=== PATIENT | male | born 1950 | race Caucasian/White ===

== ENCOUNTER 2024-09-06 10:54 | Outpatient (CLI) | payer MEDICARE, SELFPAY ==
--- OUTSIDE RECORDS SUMMARY | 2024-08-15 11:00 | XMS_ITS | Encounter Summary ---
Author Organization [facility] Address [address] [place] [id number] Care Team Providers Care Card Doffer Name Role Phone Jorje Rodas PA-C Primary Care Provider [phone] Phys[facility], [place] Family Unavailable [phone] Reason for Visit * Reason Comments Recheck Medication Not fasting, came in for med check. Encounter Details Date Type Department Care Team ([facility] st Contact Info) Description 08/15/2024 11:00 AM CDT Office Visit [facility] [address] [phone] Jorje Rodas PA-C [address] [place], [place] [id number] ACP (advance care planning) (Primary Dx); Primary hypertension; Benign prostatic hyperplasia with nocturia Social History Tobacco Use Types Packs/Day Years Used Date Smoking Tobacco: Former Cigarettes 1 35 1 965 - 2000 Smokeless Tobacco: Never Tobacco Cessation:Counseling Given: Not Answered Alcohol Use Standard Drinks/Week Comments Yes 1 (1 standard drink = 0.6 oz pur e alcohol) PHQ-2 Answer Date Recorded PHQ-2 Score 0 08/15/2024 Sex and Gender Information Value Date Recorded Sex Assigned at Not on file Legal Sex Male 3:35 AM [employer] Gender Identity Not on file Sexual Orientation Not on file documented as of this encounter Last Filed Vital Signs Vital Sign Reading Time Taken Comments Blood Pressure 115/82 08/15/2024 11:00 AM CDT Pulse 56 08/15/2024 11:00 AM CDT Temperature 36.8 C (98.3 F) 08/15/2024 11:00 AM CDT Respiratory Rate - - Oxygen Saturation 95% 08/15/2024 11:00 AM CDT Inhaled Oxygen Concentration - - Weight 93.7 kg (206 lb 9.6 oz) 08/15/2024 11:00 AM CDT Height - - Body Mass Index 33.6 01/04/2024 9:54 AM CDT documented in this encounter Progress Notes * Jorje Rodas PA-C - 08/15/2024 11:00 AM CDT Assessment & Plan Primary hypertension-stable, good control continues, refilled without change - lisinopril-hydrochlorothiazide (ZESTORETIC) 10-12.5 MG tablet Dispense: 90 tablet; Refill: 1 Benign prostatic hyperplasia with nocturia-not much improvement on higher Flomax dose. Pt declines urology referral now, will call for this. Refilled without change - tamsulosin (FLOMAX) 0.4 MG capsule Dispense: 180 capsule; Refill: 1 ACP (advance care planning) Follow up 6 months OV Subjective Sandro is a 74 year old, presenting for the following health issues: Recheck Medication (Not fasting, came in for med check.) HPI BPH: Flomax .8mg daily, no significant change with increasing this dose 7 months ago. Still having bladder urgency, hard to empty bladder, urinary dribbling. Will call if he decides to proceed with urology referral. Hypertension Follow-up Do you check your blood pressure regularly outside of the clinic? No Are you following a low salt diet? Yes Are your blood pressures ever more than 140 on the top number (systolic) OR more than 90 on the bottom number (diastolic), for example 140/90? No BP meds daily, no concerns. BP Readings from Last 2 Encounters: 08/15/24 115/82 01/04/24 124/68 Review of Systems Constitutional, neuro, ENT, endocrine, pulmonary, cardiac, gastrointestinal, genitourinary, musculoskeletal, integument and psychiatric systems are negative, except as otherwise noted. Objective BP 115/82 (BP Location: Right arm, Patient Position: Sitting, Cuff Size: Adult Large) Pulse 56 Temp 98.3 ??F (36.8 ??C) Wt 93.7 kg (206 lb 9.6 oz) SpO2 95% BMI 33.60 kg/m?? Body mass index is 33.6 kg/m??. Physical Exam GENERAL: alert and no distress NECK: no adenopathy, no asymmetry, masses, or scars RESP: lungs clear to auscultation - no rales, rhonchi or wheezes CV: regular rate and rhythm, normal S1 S2, no S3 or S4, no murmur, click or rub, no peripheral edema ABDOMEN: soft, nontender, no hepatosplenomegaly, no masses and bowel sounds normal MS: no gross musculoskeletal defects noted, no edema NEURO: Normal strength and tone, mentation intact and speech normal PSYCH: mentation appears normal, affect normal/bright Signed Electronically by: Jorje Rodas PA-C documented in this encounter Nursing Notes * Violeta Cosme CMA - 08/15/2024 11:00 AM CDT Chief Complaint Patient presents with Recheck Medication Not fasting, came in for med check. Pre-visit Screening: Immunizations: not up to date - Tdap, COVID Colonoscopy: is up to date Mammogram: na Asthma Action Test/Plan: na PHQ9: Phq2 given today GAD7: na Questioned patient about current smoking habits Pt. quit smoking some time ago. Ok to leave detailed message on voice mail for today's visit only yes, phone # [phone] (home) documented in this encounter Plan of Treatment Not on file documented as of this encounter Visit Diagnoses Diagnosis ACP (advance care planning)- Primary Other specified counseling Primary hypertension Unspecified essential hypertension Benign prostatic hyperplasia with nocturia documented in this encounter Care Teams Card Doffer Relationship Specialty Start Date End Date Jorje Rodas PA-C [address] [place] [phone] PCP - General Family Medicine 01/03/24 Physicians, [address] [place] [address] Assigned PCP 02/04/24 documented as of this encounter
--- OUTSIDE RECORDS SUMMARY | 2024-09-06 11:10 | XMS_ITS | Clinical Summary ---
Author Organization [facility] Address [address] [place] [address] Care Team Providers Care Dispensing Audiologist Name Role Phone Found, No Pcp MD Primary Care Provider Unavailab le Source Comments You are receiving this document as you are listed as the primary care provider,follow-up provider, or the patient has been referred to you for consultation.This is in compliance with the Medicare andMedicaid EHR Incentive Program,which states Providers who transition their patient to another setting of careor provider of care or refers their patient to another provider of care shouldprovide summary care record for each transition of care or referral. [facility] Allergies No known active allergies Medications atorvastatin (LIPITOR) 10 MG tabletIndication s:Dyslipidemia (HRC) Take 1 Tablet (10 mg) by mouth daily. 90 Tablet 3 3 Active lisinopril-hydro chlorothiazide (PRINZIDE) 10-12.5 MG tabletIndication s:Hypertension Take 1 Tablet by mouth daily. Indications: High Blood Pressure Disorder 90 Tablet 3 3 Active tamsulosin (FLOMAX) 0.4 MG CAPS capsuleIndicatio ns:Benign Prostatic Hypertrophy Take 1 Capsule (0.4 mg) by mouth daily. Indications: Benign Enlargement of Prostate 90 Capsule 3 3 Active Active Problems Problem Noted Date Diagnosed Date IFG (impaired fasting glucose) 06/06/2020 Osteoarthritis of carpometac arpal (CMC) joint of right thumb 01/04/2019 Osteoarthritis of left ankle 01/04/2019 Dyslipidemia 04/20/2017 Benign prostatic hyperplasia 03/18/2016 Essential hypertension 03/18/2016 Obesity 10/25/2013 Family history of colonic polyps 10/25/2013 Overview (06/06/2020): Mother with mult. large polyps. Last colonoscopy 04/15/2020, next due 04/2025. Resolved Problems Problem Noted Date Diagnosed Date Resolved Date Old complex tear of medial m eniscus of left knee 03/05/2019 05/15/2019 Immunizations Immunization Administration Dates Next Due Flu Vac (3+ yrs) 01/01/2014 Influenza (Flucelvax), Preserv Free QIV 04/05/19 Influenza IIV3 (Trivalent) F amada Highdose, 65+ Yrs (79319) 11/10/2019,01/04/2019,12/16/2017 Influenza IIV4 (Quadrivalent) 0.5mL ([id number]) 07/2016,11/15/2014 Influenza IIV4 (Quadrivalent ) Fluad, 65+ Yrs 12/13/2022,12/09/2021 Influenza ccIIV3 6 months+ (Flucelvax) 4 Influenza, Unspecified Formulation 04/14/2017 PCV13 (Prevnar) 04/14/2017,04/05/2017 PPSV23 (Pneumovax) 04/21/2018 Pfizer Bivalent 12+ 12/09/2021 Pfizer COVID-19 12+ 12/13/2022 Pfizer Monovalent 12+ 06/29/2021 Pfizer Monovalent 12+ Purple Top 12/11/2020,04/15,04/11/2020 RSV Arexvy 12/13/2022 TDAP (BOOSTRIX) 10/25/2013 Td 11/13/2007,10/05/2003 Zoster (Zostavax) 11/15/2014 Zoster RZV (Shingrix) 01/29/2020,10/23/2019 Family History Medical History Relation Name Comments Alzheimer's Father Arrhythmia Father Cancer, Bladder Father Cataract Father Pacemaker Father Colon Polyps Mother Coronary Artery Disease Mother Myocardial Infarction Mother Alzheimer's Paternal Grandfather Amblyopia/Strabismus Negative Family History Diabetes Negative Family History Glaucoma Negative Family History Macular Degeneration Negative Family History Retinal Detachment Negative Family History Relation Name Status Comments Father (Age 84) Mother (Age 77) Brother Alive Paternal Grandfather Sister 1 Alive Sister 2 Alive Social History Tobacco Use Types Packs/Day Years Used Date Smoking Tobacco: Former Cigarettes 1 35.2 0 03/14/1964 - 05/25/1999 Smokeless Tobacco: Never Tobacco Cessation:Counseling Given: Not Answered Alcohol Use Standard Drinks/Week Comments Not Currently 7 (1 standard drink = 0.6 oz pur e alcohol) Social drinker PHQ-2 Answer Date Recorded PHQ-2 Score 0 12/15/2022 Sex and Gender Information Value Date Recorded Sex Assigned at Not on file Legal Sex Male 3:38 AM CDT Gender Identity Not on file Sexual Orientation Not on file 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) Not on file Not on file Not on f ile Last Filed Vital Signs Vital Sign Reading Time Taken Comments Blood Pressure 137/78 12/15/2022 11:20 AM CDT Pulse 52 12/15/2022 11:20 AM CDT Temperature 36.6 C (97.8 F) 03/13/2019 3:52 PM 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 Respiratory Rate 18 05/25/2021 7:38 AM CDT Oxygen Saturation 97% 05/25/2021 7:38 AM CDT Inhaled Oxygen Concentration - - Weight 92.5 kg (204 lb) 12/15/2022 11:11 AM CDT Height 170.2 cm (5' 7) 12/15/2022 11:11 AM CDT Body Mass Index 31.95 12/15/2022 11:11 AM CDT Plan of Treatment Health Maintenance Due Date Last Done Comments DTaP/Tdap/Td Vaccine (2 - Tdap) 10/26/2023 10/25/2013, 10/25/2013 (Completed), 11/13/2007, Additional history exists COVID-19 Vaccine ( season) 2023 12/13/2022, 12/09/2021, 06/29/2021, Additional history exists Prediabetes: HGBA1C 12/16/2023 12/15/2022, 06/09/2021, 04/19/2017, Additional history exists Medicare Annual Wellness Visit 03/14/2024 12/15/2022, 06/09/2021, 06/06/2020 Influenza Vaccine (Season Ended) 2024 12/13/2022, 12/09/2021, 11/10/2019, Additional history exists Colonoscopy 04/15/2025 04/15/2020, 04/10/2015 Cholesterol 12/16/2027 12/15/2022, 05/13, 09/28/2019, Additional history exists Hep C Screening (Preventive Services) Completed 10/11/2016 Pneumococcal Vaccine 50+ Yrs Completed 04/21/2018, 04/14/2017, 04/05/2017 Abdominal Aortic Aneurysm (AAA) Screening Discontinued 10/25/2019 Zoster/Shingles Vaccine Completed 01/29/20 20, 10/23/2019, 11/15/2014 RSV Vaccine Completed 12/13/2022 PSA Screening Discussion Discontinued 023, 06/09/2021, 09/28/2019, Additional history exists HepA Vaccine Aged Out No longer eligi ble based on patient's age to complete this topic HepB Vaccine Aged Out No longer eligi ble based on patient's age to complete this topic Hib Vaccine Aged Out No longer eligi ble based on patient's age to complete this topic MCV4 Vaccine Aged Out No longer eligi ble based on patient's age to complete this topic Meningococcal B Vaccine Aged Out No l onger eligible based on patient's age to complete this topic Medical Devices Implanted Type Area Communications Director Device Identifier Shelf Expiration Date Model / Serial / Lot [employer] - [id number] Implanted:Qty: 1 on 08/30/2016 by Celestino Burt MD at [facility] Right: SHOULDER [employer] 07/11/2018 [id number] / 0 / [id number] Procedures Procedure Name Priority Date/Time Associated Diagnosis Comments PROSTATIC SPECIFIC ANTIGEN(SCREEN) Routine 12/15/2022 12:00 PM CDT Screening for prostate cancer HGB A1C Routine 12/15/2022 12:00 PM CDT IFG (impaired fasting glucose) LIPID PANEL & DIRECT LDL (IF NEEDED) Routine 12/15/2022 12:00 PM CDT Dyslipidemia (HRC) ENDOSCOPY, COLON, SCREENING/DIAGNOSTI C Routine 04/15/2020 9:58 AM 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 Personal history of colonic polyps US ABD AAA SCREENING Routine 10/25/2019 8:24 AM CDT Screening for AAA (abdominal aortic aneurysm) HEPATITIS C ANTIBODY, WITH REFLEX (ANTI-HCV) Routine 10/11/2016 4:39 PM CDT Screening examination for infectious disease from Last 3 Months or Most Recently Relevant to Health Maintenance Results * (ABNORMAL) Lipid Panel and Direct LDL(If Needed) (12/15/2022 12:00 PM CDT) Cholesterol 152 0 - 199 mg/dL 12/15/2022 3:56 PM CDT [facility] Triglyceride 106 <=149 mg/dL 12/15/2022 3:56 PM CDT [facility] HDL Cholesterol 39(L) >=40 mg/dL 3:56 PM CDT [facility] LDL, Calculated 92 <130 mg/dL 3:56 PM T [facility] Non HDL Chol, Calculated 113 <=159 mg/dL 12/15/2022 3:56 PM T [facility] Cholesterol/HDL Ratio 3.9 12/15/2022 3:56 PM T [facility] Hours Fasting 12.0 8 - 12 Hours 12/15/2022 3:56 PM T [facility] Blood Venipuncture / Unknown 12/15/2022 12:00 PM CDT 12/15/2022 12:00 PM CDT us Javed Macias MD LAB_1 Final Result [facility] [address] [place] [address], [facility] [phone] * Prostatic Specific Antigen (Screen) (12/15/2022 12:00 PM CDT) Prostatic Specific Antigen 3.2 0.0 - 4.0 ng/mL 12/15/2022 5:13 PM CDT [facility] Blood Venipuncture / Unknown 12/15/2022 12:00 PM CDT 12/15/2022 12:00 PM CDT [facility] - 12/15/2022 5:13 PM CDT The Heyo PSA Chemiluminescent immunoassay is used. Results obtained with different test methods or kits cannot be used interchangeably. Javed Macias MD LAB_1 Final Result Performing Organization Address City/[facility]/ZIP Co de Phone Number [facility] [address] [place], [place] [id number] [place] [address] * Hgb A1C (12/15/2022 12:00 PM CDT) Pathologist [facility] Hemoglobin A1C (Rapid) 4.9 <=5.6 % 12/15/2022 12:49 PM CDT [facility] Estimated Average Glucose (Calc) 94 < 117 mg/dL 12/15/2022 12:49 PM CDT [facility] Comment:Estimated average gl ucose (eAG) converts A1c into glucose units (mg/dL) and estimates average glucose over the past approximately 3 months. The eAG reference interval (<117 mg/dL) corresponds to an A1c of <5.7%. Blood Venipuncture / Unknown 12/15/2022 12:00 PM CDT 12/15/2022 12:00 PM CDT [facility] - 12/15/2022 12:49 PM CDT The test method used for this Hemoglobin A1c result can experience interference from elevated hemoglobin and other hemoglobin variants. In patients with results that do not correlate clinically, contact the lab for further direction. Javed Macias MD LAB_1 Final Result [facility] [address] [place] [address] [phone] * Endoscopy, colon, diagnostic (04/15/2020 9:58 AM 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) Anatomical Region Laterality Modality Other 04/15/2020 9:58 AM 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 Narrative 04/15/2020 9:58 AM 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 Patient Name: Viky Ricks Procedure Date: 04/15/2020 9:58 AM Date of : 1950 Admit Type: Outpatient Age: 70 Gender: Male Note Status: Finalized Attending MD: Praneeth Noe MD Procedure: Colonoscopy Indications: Surveillance: Personal history of adenomatous polyps on last colonoscopy 5 years ago, Last colonoscopy: March 2015 Providers: Praneeth Noe MD, Nesha Hankins RN Referring MD: Praneeth Noe MD Medicines: Midazolam 2 mg IV, Fentanyl 100 micrograms IV Complications: No immediate complications. Estimated blood loss: None. Procedure: Pre-Anesthesia Assessment: - The following statement was reviewed with the patient during pre-procedure scheduling, and was again reviewed with the patient by the endoscopist immediately prior to the procedure during the consent process, with an emphasis on the first sentence: With any procedure there is a small but inherent risk of acquiring infection including, but not limited to, the novel coronavirus (COVID-19). Please be aware that there is a potential for your procedure or surgery to be postponed, or possibly canceled, if you should test positive for COVID-19. There is also a potential for postponement of your procedure if there is a significant reduction in resources required to safely perform your procedure. After I obtained informed consent, the scope was passed under direct vision. Throughout the procedure, the patient's blood pressure, pulse, and oxygen saturations were monitored continuously. The [id number] was introduced through the anus and advanced to the cecum, identified by the appendiceal orifice, ileocecal valve and palpation. The colonoscopy was performed without difficulty. The patient tolerated the procedure well. The quality of the bowel preparation was good. Findings: Multiple small-mouthed diverticula were found in the sigmoid colon and descending colon. The retroflexed view of the distal rectum and anal verge was normal and showed no anal or rectal abnormalities. The exam was otherwise without abnormality. Moderate Sedation: Moderate (conscious) sedation was administered by the endoscopy nurse and supervised by the endoscopist. The patient's oxygen saturation, heart rate, blood pressure and response to care were monitored. Total physician intraservice time was 17 minutes. Impression: - Diverticulosis in the sigmoid colon and in the descending colon. - The distal rectum and anal verge are normal on retroflexion view. - The examination was otherwise normal. - No specimens collected. Recommendation: - Discharge patient to home. - Repeat colonoscopy in 5 years for surveillance. Procedure Code(s): --- Professional --- G0105, Colorectal cancer screening; colonoscopy on individual at high risk G0500, Moderate sedation services provided by the same physician or other qualified health care management assistant performing a gastrointestinal endoscopic service that sedation supports, requiring the presence of an independent trained observer to assist in the monitoring of the patient's level of consciousness and physiological status; initial 15 minutes of intra-service time; patient age 5 years or older (additional time may be reported with [address]152, as appropriate) Diagnosis Code(s): --- Professional --- K57.30, Diverticulosis of large intestine without perforation or abscess without bleeding Z86.010, Personal history of colonic polyps CPT copyright 2019 [employer]. All rights reserved. The codes documented in this report are preliminary and upon telephone surveyor review may be revised to meet current compliance requirements. Praneeth Noe MD 04/15/2020 10:48:22 AM This document has been electronically signed. Number of Addenda: 0 Note Initiated On: 04/15/2020 9:58 AM Endoscopy Report Procedure Note Lucien Reis MD - 04/15/2020 Patient Name: Viky Ricks Procedure Date: 04/15/2020 9:58 AM Date of : 1950 Admit Type: Outpatient Age: 70 Gender: Male Note Status: Finalized Attending MD: Praneeth Noe MD Procedure: Colonoscopy Indications: Surveillance: Personal history of adenomatous polyps on last colonoscopy 5 years ago, Last colonoscopy: March 2015 Providers: Praneeth Noe MD, Nesha Hankins RN Referring MD: Praneeth Noe MD Medicines: Midazolam 2 mg IV, Fentanyl 100 micrograms IV Complications: No immediate complications. Estimated blood loss: None. Procedure: Pre-Anesthesia Assessment: - The following statement was reviewed with the patient during pre-procedure scheduling, and was again reviewed with the patient by the endoscopist immediately prior to the procedure during the consent process, with an emphasis on the first sentence: With any procedure there is a small but inherent risk of acquiring infection including, but not limited to, the novel coronavirus (COVID-19). Please be aware that there is a potential for your procedure or surgery to be postponed, or possibly canceled, if you should test positive for COVID-19. There is also a potential for postponement of your procedure if there is a significant reduction in resources required to safely perform your procedure. After I obtained informed consent, the scope was passed under direct vision. Throughout the procedure, the patient's blood pressure, pulse, and oxygen saturations were monitored continuously. The [id number] was introduced through the anus and advanced to the cecum, identified by the appendiceal orifice, ileocecal valve and palpation. The colonoscopy was performed without difficulty. The patient tolerated the procedure well. The quality of the bowel preparation was good. Findings: Multiple small-mouthed diverticula were found in the sigmoid colon and descending colon. The retroflexed view of the distal rectum and anal verge was normal and showed no anal or rectal abnormalities. The exam was otherwise without abnormality. Moderate Sedation: Moderate (conscious) sedation was administered by the endoscopy nurse and supervised by the endoscopist. The patient's oxygen saturation, heart rate, blood pressure and response to care were monitored. Total physician intraservice time was 17 minutes. Impression: - Diverticulosis in the sigmoid colon and in the descending colon. - The distal rectum and anal verge are normal on retroflexion view. - The examination was otherwise normal. - No specimens collected. Recommendation: - Discharge patient to home. - Repeat colonoscopy in 5 years for surveillance. Procedure Code(s): --- Professional --- G0105, Colorectal cancer screening; colonoscopy on individual at high risk G0500, Moderate sedation services provided by the same physician or other qualified health care management assistant performing a gastrointestinal endoscopic service that sedation supports, requiring the presence of an independent trained observer to assist in the monitoring of the patient's level of consciousness and physiological status; initial 15 minutes of intra-service time; patient age 5 years or older (additional time may be reported with 11754, as appropriate) Diagnosis Code(s): --- Professional --- K57.30, Diverticulosis of large intestine without perforation or abscess without bleeding Z86.010, Personal history of colonic polyps CPT copyright 2019 [employer]. All rights reserved. The codes documented in this report are preliminary and upon telephone surveyor review may be revised to meet current compliance requirements. Praneeth Noe MD 04/15/2020 10:48:22 AM This document has been electronically signed. Number of Addenda: 0 Note Initiated On: 04/15/2020 9:58 AM Endoscopy Report us Praneeth Noe MD ET GI PROCEDURE ORDERABLES Fin al Result * US Abd AAA Screening (10/25/2019 8:24 AM CDT) Anatomical Region Laterality Modality Abdomen Ultrasound 10/25/2019 8:09 AM CDT Impressions 10/25/2019 8:35 AM CDT HISTORY: Evaluate for AAA. COMPARISON: None. FINDINGS: Proximal abdominal aorta measures (AP x Width): 2.8 x 2.8 cm Mid abdominal aorta measures (AP x Width): 2.2 x 2.2 cm Distal abdominal aorta measures (AP x Width): 2.1 x 2.0 cm Right common iliac artery measures 1.2 cm in maximum caliber. Left common iliac artery measures 1.1 cm in maximum caliber. IMPRESSION: No evidence of abdominal aortic aneurysm. PN Consensus recommendation for asymptomatic abdominal aortic aneurysm follow- up: 3.0-3.4 cm, recommend follow-up ultrasound in 2 years 3.5-4.4 cm, recommend follow-up ultrasound in 1 year 4.5-4.9 cm, recommend follow-up ultrasound in 6 months 5.0 cm or greater OR growth exceeding 5 mm in 6 months or 10 mm in 1 year, recommend consultation with vascular surgery Narrative Procedure Note Raoul Escobar MD - 10/25/2019 IMPRESSION HISTORY: Evaluate for AAA. COMPARISON: None. FINDINGS: Proximal abdominal aorta measures (AP x Width): 2.8 x 2.8 cm Mid abdominal aorta measures (AP x Width): 2.2 x 2.2 cm Distal abdominal aorta measures (AP x Width): 2.1 x 2.0 cm Right common iliac artery measures 1.2 cm in maximum caliber. Left common iliac artery measures 1.1 cm in maximum caliber. IMPRESSION: No evidence of abdominal aortic aneurysm. PN Consensus recommendation for asymptomatic abdominal aortic aneurysmfollow-up: 3.0-3.4 cm, recommend follow-up ultrasound in 2 years 3.5-4.4 cm, recommend follow-up ultrasound in 1 year 4.5-4.9 cm, recommend follow-up ultrasound in 6 months 5.0 cm or greater OR growth exceeding 5 mm in 6 months or 10 mm in 1 year,recommend consultation with vascular surgery us Javed Macias MD RAD US Final Result * Hepatitis C Virus Connie with Reflex (10/11/2016 4:39 PM CDT) Hepatitis C Antibody Nonreactive Nonreactive PN SOFT 10/11/2016 4:39 PM CDT 10/11/2016 6:36 PM CDT Narrative PN SOFT - 10/11/2016 7:49 PM CDT Performed at [address] [address] CLIA number [id number] us Nellie Duvall MD LAB_1 Final Result PN SOFT [address] [place] [phone] from Last 3 Months or Most Recently Relevant to Health Maintenance Insurance [employer] Care Teams Dispensing Audiologist Relationship Specialty Start Date End Date Found, No Pcp, [address] [facility] [address] PCP - General 02/03/24
--- OUTSIDE RECORDS SUMMARY | 2024-09-06 11:10 | XMS_ITS | Encounter Summary ---
Author Organization [facility] Address [address] [place] [address] Care Team Providers Care Patient Care Technician Name Role Phone Jorje Rodas PA-C Primary Care Provider [phone] Physicians, [facility] [phone] Encounter Details Date Type Department Care Team (Late st Contact Info) Description 08/09/2024 MyC Medical Advice [facility] Physicians [address] [place] [phone] Daniella Strong CMA Social History Tobacco Use Types Packs/Day Years Used Date Smoking Tobacco: Former Cigarettes 1 35 1 965 - 2000 Smokeless Tobacco: Never Alcohol Use Standard Drinks/Week Comments Yes 1 (1 standard drink = 0.6 oz pur e alcohol) PHQ-2 Answer Date Recorded PHQ-2 Score 0 01/04/2024 Sex and Gender Information Value Date Recorded Sex Assigned at Not on file 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
--- OUTSIDE RECORDS SUMMARY | 2024-09-06 11:10 | XMS_ITS | Clinical Summary ---
Author Organization [facility] Address [facility] [place] [address] Care Team Providers Care Preservative Filler Machine Operator Name Role Phone Services, [facility] Primary Care Provide r Allergies No known active allergies Medications atorvastatin (LIPITOR) 10 mg tablet Take 10 mg by mouth once daily. Active lisinopril-hyd rochlorothiazi de (10-12.5 mg) tablet (PRINZIDE; ZESTORETIC) Take 1 tablet by mouth once daily. Active tamsulosin (FLOMAX) 0.4 mg capsule Take 0.4 mg by mouth once daily after a meal. Active HYDROcodone-ac etaminophen, 5-325 mg, (NORCO) per tabletIndicati ons:Old complex tear of medial meniscus of left knee Take 1-2 tablets by mouth every 4 hours if needed for Pain Max acetaminophen dose: 4000mg in 24 hrs. 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 03/26/2019 Chronic prostatitis 04/12/2008 Prostatism Family history of colon cancer Overview (04/12/2008): mother Immunizations Immunization Administration Dates Next Due Td (Age >=7 Years) 11/13/2007,10/05/2003 Family History Medical History Relation Name Comments Good Health Brother 2 Chuy Alzheimer's disease Father Arrhythmia Father Cancer Father chest , bladder Cataracts Father Heart Disease Father LA/CABG late 6 0s to 70 Other Father pacemaker Colon polyps Mother Coronary artery disease Mother Heart Disease Mother LA (silent) Alzheimer's disease Paternal Grandfather Good Health Sister 3 Lola Good Health Sister 4 Aracelis Relation Name Status Comments Brother 1 Alive Brother 2 Chuy Daughter 1 Alive pre diabetic Daughter 2 Alive Daughter 3 Alive Father Alive cancer Mother Alive colon cancer Paternal Grandfather Sister 1 Alive Sister 2 Alive Sister 3 Lola Sister 4 Aracelis Social History Tobacco Use Types Packs/Day Years Used Date Smoking Tobacco: Former Cigarettes 1 35 1 965 - 1999 Smokeless Tobacco: Never Comments:Quit 1999 Alcohol Use Standard Drinks/Week Comments Yes 5 (1 standard drink = 0.6 oz pur e alcohol) Sex and Gender Information Value Date Recorded Sex Assigned at Not on file Legal Sex Male 6:49 AM SEWER SYSTEM SUPERVISOR Gender Identity Not on file Sexual Orientation Not on file Obstetrics History Last Filed Vital Signs Vital Sign Reading Time Taken Comments Blood Pressure 118/56 03/27/2019 9:40 AM SEWER SYSTEM SUPERVISOR Pulse 58 03/27/2019 9:40 AM SEWER SYSTEM SUPERVISOR Temperature 36.3 C (97.3 F) 03/27/2019 8:55 AM SEWER SYSTEM SUPERVISOR Respiratory Rate 16 03/27/2019 9:40 AM SEWER SYSTEM SUPERVISOR Oxygen Saturation 96% 03/27/2019 9:40 AM SEWER SYSTEM SUPERVISOR Inhaled Oxygen Concentration - - Weight 89.5 kg (197 lb 5 oz) 03/27/2019 6:30 AM SEWER SYSTEM SUPERVISOR Height 167.5 cm (5' 5.95) 03/27/2019 6:30 AM CS T Body Mass Index 31.9 03/27/2019 6:30 AM SEWER SYSTEM SUPERVISOR Plan of Treatment Health Maintenance Due Date Last Done Comments Tdap 1963 Depression screening for age 12+ 1964 BMI (ht and wt on same day) for age 18+ 1970 Hepatitis C screening for ag e 18-79 1970 Lipids for age 45-75 1997 Pneumococcal series for age 50+ (1 of 1 - PCV) 2002 Zoster (shingles) series for age 50+ (1 of 2) 2002 Tetanus booster 11/12/2017 11/13/2007, 10/05/2003 COVID-19 vaccine series ( - 2023-25 season) 2023 Influenza Vaccine (Season Ended) 2024 RSV vaccine for adults or (1 - 1-dose 75+ series) 2027 Colonoscopy through age 75 01/30/202901/30, 05/06/2008, 05/06/2008 Hepatitis B series for 19+ Aged Out N o longer eligible based on patient's age to complete this topic Procedures Procedure Name Priority Date/Time Associated Diagnosis Comments SCAN-COLONOSCOPY 01/31/2024 10:3 0 AM SEWER SYSTEM SUPERVISOR from Last 3 Months or Most Recently Relevant to Health Maintenance Results * SCAN-COLONOSCOPY (01/31/2024 10:30 AM SEWER SYSTEM SUPERVISOR) Narrative Procedure Note Marcos Julian MD - 01/31/2024 9:33 AM CST [facility] [place] [id number] [facility], [address], [place] [id number] Patient Name: Viky Ricks Jr Gender: Male Exam Date: 01/31/2024 Visit Number: [id number] Age: 73 Years Date of : 1950 Attending MD: Marcos Julian MD Medical Record#: [id number] Procedure: Colonoscopy Indications: Colorectal cancer screening Referring MD: Referral Self Primary MD: Jorje ROSALES Medications: Admitting Medications: 0.9% Normal Saline at TK Intra Procedure Medications: Patient received monitored anesthesia care. Complications: No immediate complications Procedure: An examination of the heart and lungs was performed and found to be withinacceptable limits. . The patient was therefore deemed a reasonablecandidate for endoscopy and sedation. The risks and benefits of the procedure were explained to the patient.After obtaining informed consent, the patient received monitoredanesthesia care and I passed the scope without difficulty via the rectum to the ileum. The appendiceal orificeand ic valve were identified. The scope was retroflexed during theexamination The quality of the prep was good (Miralax/Gatorade/2 tabletsBisacodyl/Magnesium Citrate). This was a complete examination throughout the entire colon. Findings: Normal finding. Location - ileum. Polyp location: ascending colon. Quantity: 1. Size: 1 mm. Polyp shape:sessile. Maneuver: polypectomy was performed with a cold snare. Removal: complete. Retrieval: complete. Bleeding: none. Polyp location: descending colon. Quantity: 1. Size: 4 mm. Polyp shape:sessile. Maneuver: polypectomy was performed with a cold snare. Removal: complete. Retrieval: complete. Bleeding: none. Polyp location: sigmoid. Quantity: 2. Size: 5 mm, 10 mm. Polyp shape:sessile. Maneuver: polypectomy was performed with a cold snare. Removal: complete. Retrieval: complete. Bleeding: none. Diverticulosis. Location: - sigmoid. Size: medium. Quantity:several. No inflammation present. Hemorrhoids. Internal hemorrhoids without bleeding. Remainder of the exam is normal. Impression: Colorectal polyps Diverticulosis of colon without diverticulitis Hemorrhoids, internal Preliminary Plan: The patient and their physician will receive a copy of the pathologyreport as well as pathology-based recommendations for future screening orsurveillance. Procedure: Upper GI Endoscopy Indications: Dysphagia Provider: Marcos Julian MD Referring MD: Referral Self Primary MD: Jorje ROSALES Medications: Admitting Medication: 0.9% Normal Saline at TKO Intra Procedure Medications: Patient received monitored anesthesia care. Complications: No immediate complications Procedure: An examination of the heart and lungs was performed within acceptablelimits. . The patient was therefore deemed a reasonable candidate forsedation. The risks and benefits were explained to the patient, who appeared tounderstand. After obtaining informed consent, the scope was passed underdirect vision. Throughout the procedure the patient's blood pressure,pulse and oxygen saturations were monitored. The scope was introducedthrough the mouth and advanced to the second portion of duodenum. Findings: Esophagus: Irregular at z line Location: GE junction; description: mild The z-line is 41 centimeters from the incisors. Top of the gastric foldsis 41 centimeters from the incisors. *Esophagus Comments: Esophagus otherwise normal without any stricture orstenosis. Scope passed through entire esophagus with no resistance.Tertiary contractions seen. Distal and mid esophageal biopsies taken withcold biopsy forceps. Stomach: Normal Location: entire stomach The diaphragm hiatus is at 41 centimeters from the incisors. Duodenum: Normal Location: entire duodenum Impression: Esophageal dysphagia Pathology Results: A: ESOPHAGUS, DISTAL, BIOPSY: 1. Normal esophageal squamous mucosa 2. Gastric cardia type mucosa with no diagnostic abnormalities 3. Negative for reflux changes and eosinophilic esophagitis 4. Negative for intestinal metaplasia and dysplasia B: ESOPHAGUS, MID, BIOPSY: 1. Normal squamous mucosa 2. Negative for reflux changes and eosinophilic esophagitis 3. Negative for columnar mucosa C: COLON, ASCENDING, POLYP: 1. Tubular adenoma 2. Negative for high grade dysplasia 3. Per the colonoscopy report: a. Polyp size: 1 mm b. Resection: Complete c. Retrieval: Complete D: COLON, DESCENDING/SIGMOID, POLYPS: 1. Tubular adenoma (1), hyperplastic polyp (1, larger polyp) andnormal colonic mucosa 2. Negative for high grade dysplasia 3. Per the colonoscopy report: a. Polyp sizes: 4 mm, 5 mm and 10 mm b. Resection: Complete c. Retrieval: Complete COMMENTS D. Histologically the largest polyp fits best for a hyperplastic polyp. MICROSCOPIC A: Performed B: Performed C: Performed D: Performed SPECIAL STAINING/DEEPER D: Deeper Electronically signed by: Umair Singer MD Interpreted at [facility], [address] [place] [id number] Orders Instruction(s)/Education: Instruction/Education Timeframe Assessment Colon Cancer Prevention K64.8 Colon Polyps K64.8 Diverticulosis/Diverticulitis K64.8 Hemorrhoids K64.8 High Fiber Diet K64.8 Final Plan: Repeat colonoscopy in 5 years. We will attempt to contact you at appropriate intervals via U.S. mail. Wemay not be able to find you or contact you at that time, therefore youshould know that the responsibility for following our recommendation restswith you. If you don't hear from us at the time your procedure is due,please contact our office to schedule an appointment. If your contactinformation should change, please contact our office so that we can updateyour record. _Electronically signed by: Marcos Julian MD 01/31/2024 cc: Jorje ROSALES us Marcos Julian MD OTHER Final Result from Last 3 Months or Most Recently Relevant to Health Maintenance Insurance [employer] COMP Advance Directives * Full Code (Latest Code Status on File) Date Activated Date Inactivated Comments 03/27/2019 6:10 AM 03/27/2019 11:53 AM Question Answer Comments Code Status Discussion: Not Discussed Care Teams Preservative Filler Machine Operator Relationship Specialty Start Date End Date Services, [address] [address] PCP - General 08/04/16
--- OUTSIDE RECORDS SUMMARY | 2024-09-06 11:10 | XMS_ITS | Encounter Summary ---
Author Organization [place] Address [address] [place] [address] Care Team Providers Care Judicial Administrative Assistant Name Role Phone Jorje Rodas PA-C Primary Care Provider [phone] Physicians, [place] Family Unavailable [phone] Reason for Visit * Reason Comments Medication Refill Encounter Details Date Type Department Care Team ([facility] st Contact Info) Description 08/11/2024 Refill [facility] Physicians [address] [phone] Jorje Rodas PA-C [address] [place], [place] [address] Medication Refill Social History Tobacco Use Types Packs/Day Years [...] on file Legal Sex Male 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 Gender Identity Not on file Sexual Orientation Not on file documented as of this encounter Miscellaneous Notes * Telephone Encounter - Mahesh Dejesus MA - 08/13/2024 7:39 AM CDT Refused Prescriptions: Disp Refills tamsulosin (FLOMAX) 0.4 MG capsule [Pharma* Sig: TAKE 2 CAPSULES BY MOUTH EVERY DAY Refused By: MAHESH DEJESUS I Reason for Refusal: Patient needs appointment lisinopril-hydrochlorothiazide (ZESTORETIC* Sig: TAKE 1 TABLET BY MOUTH EVERY DAY Refused By: MAHESH DEJESUS I Reason for Refusal: Patient needs appointment Pt due for a ov My chart message sent on 08-09-2024 mahesh documented in this encounter Plan of Treatment Not on file documented as of this encounter Visit Diagnoses Diagnosis Benign prostatic hyperplasia with nocturia Primary hypertension Unspecified essential hypertension documented in this encounter Care Teams Judicial Administrative Assistant Relationship Specialty Start Date End Date Jorje Rodas PA-C [address] [place] [address] PCP - General Family Medicine 01/03/24 Physicians, [address] [facility] [address] [place] [phone] Assigned PCP 02/04/24 documented as of this encounter
--- OUTSIDE RECORDS SUMMARY | 2024-09-06 11:10 | XMS_ITS | Clinical Summary ---
Author Organization [place] Address [address] [place] [address] Care Team Providers Care Investment Strategist Name Role Phone Jorje Rodas PA-C Primary Care Provider [phone] Physicians, [place] Family Unavailable [phone] Allergies No known active allergies Medications atorvastatin (LIPITOR) 10 MG tabletIndications: Mixed hyperlipidemia Take 1 tablet (10 mg) by mouth daily. 90 tablet 3 4 Active lisinopril-hydroch lorothiazide (ZESTORETIC) 10-12.5 MG tabletIndications: Primary hypertension Take 1 tablet by mouth daily. 90 tablet 1 5 Active tamsulosin (FLOMAX) 0.4 MG capsuleIndications :Benign prostatic hyperplasia with nocturia Take 2 capsules (0.8 mg) by mouth daily. 180 capsule 1 5 Active tamsulosin (FLOMAX) 0.4 MG capsuleIndications :Benign prostatic hyperplasia with nocturia Take 2 capsules (0.8 mg) by mouth daily. 180 capsule 1 4 025 Discontin ued(Reord er (No AVS)) lisinopril-hydroch lorothiazide (ZESTORETIC) 10-12.5 MG tabletIndications: Primary hypertension Take 1 tablet by mouth daily. 90 tablet 1 4 025 Discontin ued(Reord er (No AVS)) Encounters Date Type Department Care Team Description 08/15/2024 11:00 AM CDT Office Visit [facility] [address] [place] [address] Jorje Rodas PA-C ACP (advance care planning) (Primary Dx); Primary hypertension; Benign prostatic hyperplasia with nocturia 08/15/2024 Travel 08/11/2024 Refill [facility] Phys[facility] [address] [place] [address] [address] [place] [address] Jorje Rodas PA-C Medication Refill 08/09/2024 MyC Medical Advice [facility] Physicians [address] [place] [address] Daniella Strong CMA from Last 3 Months Immunizations Immunization Administration Dates Next Due Flu, Unspecified 04/14/2017 INFLUENZA,TRIVALENT (FLUCELVAX) 03/31/2013 Influenza (High Dose) Trival ent,PF (Fluzone) 11/25/2023,01/04/2019,12/16/2017 Influenza (IIV3) PF 01/01/2014 Influenza Vaccine 65+ (FLUAD) 12/13/2022, 022 Influenza Vaccine 65+ (Fluzone HD) 11/10/2019 Influenza Vaccine >6 months,quad, PF 03/18/2016, 11/15/2014 Influenza,INJ,MDCK,PF,Quad >6mo(Flucelvax) 04/05 Pneumo Conj 13-V (2010&after) 04/14/2017, 018 Pneumococcal 23 valent 04/21/2018 RSV Vaccine (Arexvy) 12/13/2022 TDAP (Adacel,Boostrix) 10/25/2013 Td (Adult), Adsorbed 11/13/2007,10/05/2003 Zoster recombinant adjuvanted (Shingrix) 020,10/23/2019 Zoster vaccine, live 11/15/2014 Family History Medical History Relation Comments No Known Problems Brother No Known Problems Daughter 1 Growth hormone deficiency Daughter 2 No Known Problems Daughter 3 Alzheimer Disease Father Bladder Cancer Father Coronary Artery Disease Father Myasthenia gravis Father Myocardial Infarction Father Colon Polyps Mother Coronary Artery Disease Mother Myocardial Infarction Mother No Known Problems Sister 1 No Known Problems Sister 2 Relation Status Comments Brother Alive Daughter 1 Alive Daughter 2 Alive Daughter 3 Alive Father Mother Sister 1 Alive Sister 2 Alive Social [...] on file 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 Gender Identity Not on file Sexual Orientation Not on file Last Filed Vital Signs Vital Sign Reading Time Taken Comments Blood Pressure 115/82 08/15/2024 11:00 AM CDT Pulse 56 08/15/2024 11:00 AM CDT Temperature 36.8 C (98.3 F) 08/15/2024 11:00 AM CDT Respiratory Rate - - Oxygen Saturation 95% 08/15/2024 11:00 AM CDT Inhaled Oxygen Concentration - - Weight 93.7 kg (206 lb 9.6 oz) 08/15/2024 11:00 AM CDT Height 167 cm (5' 5.75) 01/04/2024 9:54 AM CDT Body Mass Index 33.6 01/04/2024 9:54 AM CDT Plan of Treatment Health Maintenance Due Date Last Done Comments ANNUAL REVIEW OF HM ORDERS 1950 CT COLONOGRAPHY 1950 FIT 1950 FLEX SIG 1950 sDNA (Cologuard) 1950 BMP 01/03/2025 01/04/2024 FALL RISK ASSESSMENT 01/03/2025 01/04/2024 LIPID 01/03/2025 01/04/2024 MEDICARE ANNUAL WELLNESS VISIT 01/03/2025 01/04/2024, 01/04/2024, 06/09/2021, Additional history exists COVID-19 VACCINE ( season) 2025 11/25/2023, 12/13/2022, 12/09/2021, Additional history exists Postponed from 05/24/2024 (Patient Declined) DTAP/TDAP/TD VACCINE (2 - Td or Tdap) 08/15/2025 10/25/2013, 11/13/2007, 10/05/2003 Postponed from 10/26/2023 (Insurance Coverage) DIABETES SCREENING 01/03/2027 01/04/2024, 01/04/2024 COLONOSCOPY 01/30/2029 01/31/2024, 01/12, 05/06/2008 COLORECTAL CANCER SCREENING 01/30/2029 ADVANCE CARE PLANNING 08/15/2029 08/15/2024 PNEUMOCOCCAL VACCINE 50+ YEARS Completed 04/21/2018, 04/14/2017, 04/05/2017 AORTIC ANEURYSM SCREENING (SYSTEM ASSIGNED) Completed 10/25/2019, 10/25/2019 ZOSTER VACCINE Completed 01/29/2020, 10/12, 11/15/2014 RSV VACCINE Completed 12/13/2022 INFLUENZA VACCINE Completed 11/25/2023, , 12/09/2021, Additional history exists HEPATITIS C SCREENING Completed 01/04/2024, 017 PHQ-2 (once per calendar year) Completed 08/15/2024, 01/04/2024 HPV VACCINE Aged Out No longer eligi ble based on patient's age to complete this topic MENINGITIS VACCINE Aged Out No longer eligible based on patient's age to complete this topic Procedures Procedure Name Priority Date/Time Associated Diagnosis Comments COLONOSCOPY - HIM SCAN Routine 01/31/2024 HEP C ANTISE Routine 01/04/2024 12:43 PM CDT Routine general medical examination at a health care facility Encounter for hepatitis C screening test for low risk patient LIPID PANEL ([facility]) Routine 01/04/2024 Mixed hyperlipidemia BASIC METABOLIC PANEL ([facility]) Routine 01/04/2024 Primary hypertension from Last 3 Months or Most Recently Relevant to Health Maintenance Results * Colonoscopy - HIM Scan (01/31/2024) us Patient Reported PROCEDURES Final Result * HEPATITIS C ANTIBODY ([facility]) (01/04/2024 12:43 PM CDT) HCV Antibody NON-REACTI VE NON-REACT [facility] Comment: HCV antibody was non-reactive. There is no laboratory evidence of HCV infection. In most cases, no further action is required. However, if recent HCV exposure is suspected, a test for HCV RNA (test code 62151) is suggested. For additional information please refer to http://education.Ariel [address]/faq/ATC59r0 (This link is being provided for informational/ educational purposes only.) Blood 01/04/2024 12:4 3 PM CDT 01/05/2024 3:14 AM CDT Narrative Resulting Agency Comment Performing Organization Information: [facility] [address] [place] [address] [place] Jorje Rodas PA-C LAB - NON-BEAKER BLOOD LABS [facility] [address] [place], [place] [id number] [place] [address] * Lipid Panel ([facility]) (01/04/2024) Cholesterol 149 0 - 199 mg/dL [facility] Triglycerides 104 0 - 149 mg/dL [facility] HDL Cholesterol 47 40 - 150 mg/dL [facility] LDL-C 81 0 - 129 mg/dL [facility] Cholesterol/HDL Ratio 3 0 - 5 [facility] Blood 01/04/2024 Jorje Rodas PA-C LAB - NON-BEAKER BLOOD LABS [facility] [address] [place] [phone] * (ABNORMAL) Basic Metabolic Panel ([facility]) (01/04/2024) Carbon Dioxide 28.8 20 - 32 mmol/L [facility] Creatinine 1.13 0.60 - 1.30 mg/dL [facility] Glucose 103(A) 60 - 99 mg/dL [facility] Sodium 141.0 135 - 146 mmol/L [facility] Potassium 3.91 3.5 - 5.3 mmol/L [facility] Chloride 102.2 98 - 110 mmol/L [facility] Urea Nitrogen 20 7 - 25 mg/dL [facility] Calcium 9.7 8.6 - 10.3 mg/dL [facility] BUN/Creatinine Ratio 18 6 - 32 [facility] Blood 01/04/2024 us Jorje Rodas PA-C LAB - NON-BEAKER BLOOD LABS Heather [facility] [address] [place] [address] [address] [place] [address], [facility] from Last 3 Months or Most Recently Relevant to Health Maintenance Insurance [employer] MEDICARE ADVANTAGE Care Teams Investment Strategist Relationship Specialty Start Date End Date Jorje Rodas PA-C [address] [place], [place] [phone] PCP - General Family Medicine 01/03/24 Physicians, [place] [facility] [address] [place] [address] Assigned PCP 02/04/24
--- OUTSIDE RECORDS SUMMARY | 2024-09-06 11:10 | XMS_ITS | Encounter Summary ---
Author Organization [place] Address [address] [place] [address] Care Team Providers Care Press Room Supervisor Name Role Phone Jorje Rodas PA-C Primary Care Provider [phone] Physicians, [facility] [phone] Encounter Details Date Type Department Care Team (Latest Contact Info) Description 08/15/2024 Travel Social History Tobacco Use Types Packs/Day Years Used Date Smoking Tobacco: Former Cigarettes 1 35 1 965 - 1999 Smokeless Tobacco: Never Alcohol Use Standard Drinks/Week Comments Yes 1 (1 standard drink = 0.6 oz pur e alcohol) PHQ-2 Answer Date Recorded PHQ-2 Score 0 08/15/2024 Sex and Gender Information Value Date Recorded Sex Assigned at Not on file 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
--- NOTE | 2024-09-06 11:15 | CRLHL7_ITS ---
For Patients: As a result of the Century Cures Act, medical imaging exams and procedure reports are released immediately into your electronic medical record. You may view this report before your referring provider. If you have questions, please contact your health care provider. Technique: Single contrast timed barium esophagram performed in routine fashion. 140 cc of thin barium administered offer. Less than 5 minutes. Fluoroscopy time 28 seconds. Indication: Dysphagia Comparison: None. Findings: Timed barium esophagram requested. Barium enters the stomach without difficulty. No stricture or obstruction. The esophagus is clear at 1 minute time. The 2 minute and 5 minute films are not obtained. Impression: 1 minute timed barium esophagram shows that all of the swallowed barium was present in the stomach. No evidence of achalasia. Dictated by Kushal Boston MD @ 09/06/2024 3:48:51 PM (Electronically Signed)
--- OUTSIDE RECORDS SUMMARY | 2024-09-07 00:56 | XMS_ITS | Clinical Summary ---
Author Organization [facility] Address [address] [place] [address] Care Team Providers Care Pharmaceutical Officer Name Role Phone Found, No Pcp MD [...] for each transition of care or referral. 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) Not on file Not on file Not on f ile Last Filed Vital Signs Vital Sign Reading Time Taken Comments Blood Pressure 137/78 12/15/2022 11:20 AM CDT Pulse 52 12/15/2022 11:20 AM CDT Temperature 36.6 C (97.8 F) 03/13/2019 3:52 PM GELATIN DYNAMITE PACKING OPERATOR Respiratory Rate 18 05/25/2021 7:38 AM CDT [...] this topic Medical Devices Implanted Type Area Lump Inspector Device Identifier Shelf Expiration Date Model / Serial / Lot [employer] - [id number] Implanted:Qty: 1 on 08/30/2016 by Celestino Burt MD at [facility] Right: SHOULDER [employer] 07/11/2018 [id number] / 0 / [id number] Procedures Procedure Name Priority Date/Time Associated Diagnosis Comments PROSTATIC SPECIFIC ANTIGEN(SCREEN) Routine 12/15/2022 12:00 PM CDT Screening for prostate cancer HGB A1C Routine 12/15/2022 12:00 PM CDT IFG (impaired fasting glucose) LIPID PANEL & DIRECT LDL (IF NEEDED) Routine 12/15/2022 12:00 PM CDT Dyslipidemia ([facility]) ENDOSCOPY, COLON, SCREENING/DIAGNOSTI C Routine 04/15/2020 9:58 AM GELATIN DYNAMITE PACKING OPERATOR Personal history of colonic polyps US ABD [...] - 199 mg/dL 12/15/2022 3:56 PM CDT [facility] Triglyceride 106 <=149 mg/dL 12/15/2022 3:56 PM CDT [facility] HDL Cholesterol 39(L) >=40 mg/dL 3:56 PM CDT [facility] LDL, Calculated 92 <130 mg/dL 3:56 PM T [facility] Non HDL Chol, Calculated 113 <=159 mg/dL 12/15/2022 3:56 PM T [facility] Cholesterol/HDL Ratio 3.9 12/15/2022 3:56 PM T [facility] Hours Fasting 12.0 8 - 12 Hours 12/15/2022 3:56 PM T [facility] Blood Venipuncture / Unknown 12/15/2022 12:00 PM CDT 12/15/2022 12:00 PM CDT us Javed Macias MD LAB_1 Final Result [facility] [address] [place] [address], [facility] [phone] * Prostatic Specific Antigen (Screen) (12/15/2022 12:00 PM CDT) Prostatic Specific Antigen 3.2 0.0 - 4.0 ng/mL 12/15/2022 5:13 PM CDT [facility] Blood Venipuncture / Unknown 12/15/2022 12:00 PM CDT 12/15/2022 12:00 PM CDT [facility] - 12/15/2022 5:13 PM CDT The [employer] PSA Chemiluminescent immunoassay is used. Results obtained with different test methods or kits cannot be used interchangeably. Javed Macias MD LAB_1 Final Result Performing Organization Address City/[facility]/ZIP Co de Phone Number [facility] [address] [place], [place] [id number] [place] [address] * Hgb A1C (12/15/2022 12:00 PM CDT) Pathologist [facility] Hemoglobin A1C (Rapid) 4.9 <=5.6 % 12/15/2022 12:49 PM CDT [facility] Estimated Average Glucose (Calc) 94 < 117 mg/dL 12/15/2022 12:49 PM CDT [facility] Comment:Estimated average gl ucose (eAG) converts A1c into glucose units (mg/dL) and estimates average glucose over the past approximately 3 months. The eAG reference interval (<117 mg/dL) corresponds to an A1c of <5.7%. Blood Venipuncture / Unknown 12/15/2022 12:00 PM CDT 12/15/2022 12:00 PM CDT [facility] - 12/15/2022 12:49 PM CDT The test method used for this Hemoglobin A1c result can experience interference from elevated hemoglobin and other hemoglobin variants. In patients with results that do not correlate clinically, contact the lab for further direction. Javed Macias MD LAB_1 Final Result [facility] [address] [place] [address] [phone] * Endoscopy, colon, diagnostic (04/15/2020 9:58 AM GELATIN DYNAMITE PACKING OPERATOR) Anatomical Region Laterality Modality Other 04/15/2020 9:58 AM GELATIN DYNAMITE PACKING OPERATOR Narrative 04/15/2020 9:58 AM GELATIN DYNAMITE PACKING OPERATOR Patient Name: Viky Ricks Procedure Date: 04/15/2020 [...] and oxygen saturations were monitored continuously. The [id number] was introduced through the anus and advanced [...] the same physician or other qualified health medicare insurance specialist performing a gastrointestinal endoscopic service that sedation supports, requiring the presence of an independent trained observer to assist in the monitoring of the patient's level of consciousness and physiological status; initial 15 minutes of intra-service time; patient age 5 years or older (additional time may be reported with [address], as appropriate) Diagnosis Code(s): --- Professional --- K57.30, Diverticulosis of large intestine without perforation or abscess without bleeding Z86.010, Personal history of colonic polyps CPT copyright 2019 [employer]. All rights reserved. The codes documented in this report are preliminary and upon converter supervisor review may be revised to meet current [...] and oxygen saturations were monitored continuously. The [id number] was introduced through the anus and advanced [...] the same physician or other qualified health medicare insurance specialist performing a gastrointestinal endoscopic service that sedation supports, requiring the presence of an independent trained observer to assist in the monitoring of the patient's level of consciousness and physiological status; initial 15 minutes of intra-service time; patient age 5 years or older (additional time may be reported with [address], as appropriate) Diagnosis Code(s): --- Professional --- K57.30, Diverticulosis of large intestine without perforation or abscess without bleeding Z86.010, Personal history of colonic polyps CPT copyright 2019 [employer]. All rights reserved. The codes documented in this report are preliminary and upon converter supervisor review may be revised to meet current [...] - 10/11/2016 7:49 PM CDT Performed at [address] [address] CLIA number [id number] us Nellie Duvall MD LAB_1 Final Result [facility] [address] [place] [id number] from Last 3 Months or Most Recently Relevant to Health Maintenance Insurance [employer] Care Teams Pharmaceutical Officer Relationship Specialty Start Date End Date Found, No Pcp, [address] [place] [address] PCP - General 02/03/24
--- OUTSIDE RECORDS SUMMARY | 2024-09-07 00:56 | XMS_ITS | Clinical Summary ---
Author Organization [employer] Address [facility] [place] [address] Care Team Providers Care Charge Account Clerk Name Role Phone Services, [facility] Primary Care Provide r Allergies No known [...] 24 hrs. 10 tablet 03/27/2019 9:05 AM MECHANICAL SOUND TECHNICIAN 0 Active Active Problems Problem Noted Date [...] , bladder Cataracts Father Heart Disease Father [place]/CABG late 6 0s to 70 Other Father pacemaker Colon polyps Mother Coronary artery disease Mother Heart Disease Mother [place] (silent) Alzheimer's disease Paternal Grandfather Good Health [...] on file Legal Sex Male 6:49 AM MECHANICAL SOUND TECHNICIAN Gender Identity Not on file Sexual Orientation Not on file Obstetrics History Last Filed Vital Signs Vital Sign Reading Time Taken Comments Blood Pressure 118/56 03/27/2019 9:40 AM MECHANICAL SOUND TECHNICIAN Pulse 58 03/27/2019 9:40 AM MECHANICAL SOUND TECHNICIAN Temperature 36.3 C (97.3 F) 03/27/2019 8:55 AM MECHANICAL SOUND TECHNICIAN Respiratory Rate 16 03/27/2019 9:40 AM MECHANICAL SOUND TECHNICIAN Oxygen Saturation 96% 03/27/2019 9:40 AM MECHANICAL SOUND TECHNICIAN Inhaled Oxygen Concentration - - Weight 89.5 kg (197 lb 5 oz) 03/27/2019 6:30 AM MECHANICAL SOUND TECHNICIAN Height 167.5 cm (5' 5.95) 03/27/2019 6:30 AM CS T Body Mass Index 31.9 03/27/2019 6:30 AM MECHANICAL SOUND TECHNICIAN Plan of Treatment Health Maintenance Due Date [...] Diagnosis Comments SCAN-COLONOSCOPY 01/31/2024 10:3 0 AM MECHANICAL SOUND TECHNICIAN from Last 3 Months or Most Recently Relevant to Health Maintenance Results * SCAN-COLONOSCOPY (01/31/2024 10:30 AM MECHANICAL SOUND TECHNICIAN) Narrative Procedure Note Marcos Julian MD - 01/31/2024 9:33 AM CST [facility] [place] [id number] [facility], [address], [place] [id number] Patient Name: Viky Ricks Jr Gender: Male Exam Date: 01/31/2024 Visit Number: [id number] Age: 73 Years Date of : 1950 Attending MD: Marcos Julian MD Medical Record#: [id number] Procedure: Colonoscopy Indications: Colorectal cancer screening Referring [...] signed by: Umair Singer MD Interpreted at [facility], [address] [place] [phone] Orders Instruction(s)/Education: Instruction/Education Timeframe Assessment Colon Cancer [...] Code Status Discussion: Not Discussed Care Teams Charge Account Clerk Relationship Specialty Start Date End Date Services, [address] [address] PCP - General 08/04/16
== END 2024-09-06 10:55 | disposition home or self-care (01) ==
PROVIDERS: PCP Internal Medicine; Visit Provider Internal Medicine
DX: R13.10 Dysphagia, unspecified (principal)
CPT/HCPCS: 74220